=== PATIENT | male | born 1995 | race Caucasian/White ===

== ENCOUNTER 2020-10-04 12:04 | Emergency (ER) | payer OTHER ==
[~2020-10-04] VITALS: Ht 177.8 cm; Wt 111.1 kg
[2020-10-04] MEDS ORDERED: NORFLEX100MG PO (13:49)
[2020-10-04] MEDS ORDERED: KETO10TA2 PO (13:49)
== END 2020-10-04 14:20 | disposition home or self-care (01) ==
LOC: ER 12:04
DX: M54.2 Cervicalgia (principal)